=== PATIENT | female | born 2000 | race Caucasian/White ===

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

== ENCOUNTER 2019-02-02 22:11 | Emergency (ER) | payer SELFPAY ==
[~2019-02-02] VITALS: Ht 147.3 cm; Wt 39.0 kg
[2019-02-02 22:26] VITALS: BP 111/73
== END 2019-02-03 01:26 | disposition left against medical advice (07) ==
LOC: ER 22:11
DX: R51 Headache (principal); R10.9 Unspecified abdominal pain; R11.10 Vomiting, unspecified; Z53.21 Procedure and treatment not carried out due to patient leaving prior to being seen by health care provider
CPT/HCPCS: 81025

== ENCOUNTER 2019-05-02 22:13 | Observation (INO) | payer MEDICAID ==
[~2019-05-02] VITALS: Ht 147.3 cm; Wt 45.4 kg
[2019-05-02] MEDS ORDERED: LACTATED RINGERS 1,000 ML IV SCH (23:00)
[2019-05-02] MEDS ORDERED: ACETAMINOPHEN 500MG TABLET PO NR (23:00)
[2019-05-02] MEDS ORDERED: PREN1TAB78 MT (23:17)
[2019-05-02] MEDS ORDERED: FERR-71 MT (23:18)
[2019-05-02 23:23] LABS: CLARITY URINE CLEAR (CLEAR); COLOR URINE YELLOW (YELLOW); KETONES URINE NEGATIVE (NEGATIVE); LEUKOCYTE ESTERASE URINE 1+ (NEGATIVE); NITRITE URINE NEGATIVE (NEGATIVE); OCCULT BLOOD URINE NEGATIVE (NEGATIVE); PH URINE 6.5 (4.5-8.0); PROTEIN URINE NEGATIVE (NEGATIVE); SPECIFIC GRAVITY URINE 1.013 (1.005-1.030); UROBILINOGEN URINE 0.2 E.U./dL (0.2-1.0)
[2019-05-02] MEDS ORDERED: TERBUTALINE SULFATE 1MG/ML VIAL SUBCUT NR (23:30)
== END 2019-05-03 00:40 | disposition home or self-care (01) ==
LOC: 8 EST LDRP 22:13
PROVIDERS: ADMIT Obstetrics & Gynecology; ATTEND Obstetrics & Gynecology
DX: O26.893 Other specified pregnancy related conditions, third trimester (principal); R35.0 Frequency of micturition; R10.9 Unspecified abdominal pain; O62.9 Abnormality of forces of labor, unspecified; Z3A.30 30 weeks gestation of pregnancy
CPT/HCPCS: 81003; 96372; 99281; G0378; J3105; 96360; 96361

== ENCOUNTER 2019-06-22 21:01 | Observation (INO) | payer MEDICAID ==
[~2019-06-22] VITALS: Ht 147.3 cm; Wt 50.3 kg
[~2019-06-22 21:01] MED LIST: FERR-71 MT; PREN1TAB78 MT
[2019-06-22 23:07] LABS: CLARITY URINE CLEAR (CLEAR); COLOR URINE YELLOW (YELLOW); KETONES URINE NEGATIVE (NEGATIVE); LEUKOCYTE ESTERASE URINE 2+ (NEGATIVE); NITRITE URINE NEGATIVE (NEGATIVE); OCCULT BLOOD URINE NEGATIVE (NEGATIVE); PH URINE 6.5 (4.5-8.0); PROTEIN URINE NEGATIVE (NEGATIVE); SPECIFIC GRAVITY URINE 1.011 (1.005-1.030); UROBILINOGEN URINE 0.2 E.U./dL (0.2-1.0)
[2019-06-22] MEDS ORDERED: DEXT 5%/LACTATED RINGERS 1,000 ML IV ONE (23:45)
[2019-06-23] MEDS ORDERED: CEFAZOLIN 2,000 MG in DEXT 5% WATER 100 ML IV NR (00:05)
== END 2019-06-23 01:51 | disposition home or self-care (01) ==
LOC: 8 EST LDRP 21:01
PROVIDERS: ADMIT Obstetrics & Gynecology; ATTEND Obstetrics & Gynecology
DX: O26.893 Other specified pregnancy related conditions, third trimester (principal); M54.5 Low back pain; Z3A.37 37 weeks gestation of pregnancy
CPT/HCPCS: 81003; 96365; 99281; G0378; J0690; J7060; 96360; 96361